=== PATIENT | female | born 1965 | race Caucasian/White ===

== ENCOUNTER 2018-07-02 00:15 | Emergency (ER) | payer BC ==
--- NOTE | 2018-07-02 00:43 | EDM.PDOC ---
ED HPI GENERAL MEDICAL PROBLEM - General Chief Complaint: ENT Problem Stated Complaint: POSSIBLE EAR INFECTION OR STREP THROAT Time Seen by Provider: 07/02/18 00:34 - History of Present Illness INITIAL COMMENTS - FREE TEXT/NARRATIVE: HISTORY AND PHYSICAL: History of present illness: The patient is a 52-year-old female who is a [id number] diabetic and presents with complaints of a sore throat and right ear pain that started about 24 hours ago. She has been able to eat or drink but says that there is discomfort with swallowing and she has had no cough or runny nose chest pain shortness of breath nausea vomiting or diarrhea. Patient says that she has been around ill contacts and does work in a correctional facility. She otherwise is feeling good and says her sugars been running in their appropriate ranges. Review of systems: As per history of present illness and below otherwise all systems reviewed and negative. Past medical history: As per history of present illness and as reviewed below otherwise noncontributory. Surgical history: As per history of present illness and as reviewed below otherwise noncontributory. Social history: No reported history of drug or alcohol abuse. Family history: As per history of present illness and as reviewed below otherwise noncontributory. Physical exam: General: Well-developed well-nourished overweight female who is nontoxic and vital signs are reviewed by me HEENT: Atraumatic, normocephalic, negative for conjunctival pallor or scleral icterus, mucous membranes moist, throat clear of exudates but there is diffuse posterior oropharyngeal erythema without gross swelling, there is no cervical adenopathy or nuchal rigidity, TM on the right is old but not red or bulging, neck supple, nontender, trachea midline. Lungs: Clear to auscultation, breath sounds equal bilaterally, chest nontender. Heart: S1S2, regular rate and rhythm no overt murmurs Abdomen: Soft, nondistended, nontender. NABS Pelvis: Deferred Genitourinary: Deferred. Rectal: Deferred. Extremities: Atraumatic, full range of motion. Neurovascular unremarkable. Neuro: Awake, alert, oriented. Cranial nerves II through XII unremarkable. Cerebellum unremarkable. Motor and sensory unremarkable throughout. Exam nonfocal. Diagnostics: Rapid strep Patient declines an Accu-Chek and she said she does not eat a meal Therapeutics: [] Impression: Strep Pharyngitis/right otalgia Definitive disposition and diagnosis as appropriate pending reevaluation and review of above. 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: Endocrine/Metabolic History: Reports: Diabetes, Type I - Infectious Disease History Infectious Disease History: Reports: Chicken Pox - Past Surgical History Cardiovascular Surgical History: Reports: None Female Surgical History: Reports: Hysterectomy Endocrine Surgical History: Reports: None Social & Family History - Family History Family Medical History: Noncontributory - Tobacco Use Smoking Status *Q: Current Every Day Smoker Years of Tobacco use: 20 Packs/Tins Daily: 0.5 - Caffeine Use Caffeine Use: Reports: Coffee, Soda - Recreational Drug Use Recreational Drug Use: No ED ROS GENERAL - Review of Systems Review Of Systems: ROS reveals no pertinent complaints other than HPI. ED EXAM, GENERAL - Physical Exam Exam: See Below (See dictation) Course - Vital Signs Last Recorded V/S: Last Vital Signs Temp 36.4 C 07/02/18 00:24 Pulse 94 07/02/18 00:24 Resp 19 07/02/18 00:24 BP 176/98 H 07/02/18 00:24 Pulse Ox 96 07/02/18 00:24 Departure - Departure Time of Disposition: 01:18 Disposition: Home, Self-Care 01 Condition: Good Clinical Impression: Otalgia of right ear, Strep pharyngitis - Discharge Information Instructions: Pharyngitis, Zenf-rr-Fogt, Earache, Adult Referrals: Isidro Metz MD [Primary Care Provider] - Forms: ED Department Discharge Additional Instructions: The following information is given to patients seen in the emergency department who are being discharged to home. This information is to outline your options for follow-up care. We provide all patients seen in our emergency department with a follow-up referral. The need for follow-up, as well as the timing and circumstances, are variable depending upon the specifics of your emergency department visit. If you don't have a primary care physician on staff, we will provide you with a referral. We always advise you to contact your personal physician following an emergency department visit to inform them of the circumstance of the visit and for follow-up with them and/or the need for any referrals to a consulting specialist. The emergency department will also refer you to a specialist when appropriate. This referral assures that you have the opportunity for followup care with a specialist. All of these measure are taken in an effort to provide you with optimal care, which includes your followup. Under all circumstances we always encourage you to contact your private physician who remains a resource for coordinating your care. When calling for followup care, please make the office aware that this follow-up is from your recent emergency room visit. If for any reason you are refused follow-up, please contact the [facility] emergency department at and ask to speak to the emergency department charge nurse. [facility]- Internal [place] [address] Push hydration and continue to watch your diet. Use [id number] Tylenol or ibuprofen for pain. Please call and schedule a follow-up appointment with your provider or one of our clinic providers for reevaluation and further care. Return to ER as needed and as discussed. Please take antibiotics as prescribed to be [facility], amoxicillin
[2018-07-02 01:48] VITALS: BP 170/90
== END 2018-07-02 01:25 | disposition home or self-care (01) ==
LOC: MW.ED 00:15
DX: J02.0 Streptococcal pharyngitis (principal); H92.01 Otalgia, right ear; I10 Essential (primary) hypertension; E10.9 Type 1 diabetes mellitus without complications; Z79.4 Long term (current) use of insulin; Z79.899 Other long term (current) drug therapy; F17.210 Nicotine dependence, cigarettes, uncomplicated
CPT/HCPCS: 87880-QW; 99282; 99283